=== PATIENT | female | born 1955 | race American Indian/Alaskan Native ===

== ENCOUNTER 2016-11-08 18:57 | Emergency (ER) | payer MEDICAID, SELFPAY ==
[2016-11-08 19:08] VITALS: TEMP 98.1
--- NOTE | 2016-11-08 19:40 | C.PDOC ---
History Of Present Illness Patient reports 1 week history of swelling and pain to the right 4th toe. The patient reports she did not injury the toe or have any rash/broken skin. Patient reports that the symptoms progressively worsened today prompting visit. Denies fever, drainage. Time Seen by Provider: 11/08/16 19:21 Chief Complaint (Nursing): Lower Extremity Problem/Injury History Per: Patient History/Exam Limitations: no limitations Onset/Duration Of Symptoms: Days Current Symptoms Are (Timing): Still Present Pain Scale Rating Of: 4 Recent travel outside of the [place]: No Past Medical History Reviewed: Historical Data, Nursing Documentation, Vital Signs Vital Signs: Last Vital Signs Temp 98.1 F 11/08/16 19:03 Pulse 80 11/08/16 20:43 Resp 16 11/08/16 20:43 BP 132/81 11/08/16 20:43 Pulse Ox 98 11/08/16 20:43 - Medical History PMH: Diabetes, HTN Family History: States: No Known Family Hx - Social History Hx Alcohol Use: No Hx Substance Use: No Review Of Systems Except As Marked, All Systems Reviewed And Found Negative. Physical Exam - Physical Exam Appears: Non-toxic, No Acute Distress Skin: Normal Color, Warm, No Rash Head: Atraumatic, Normacephalic Eye(s): bilateral: Normal Inspection Oral Mucosa: Moist Extremity: Normal ROM, Capillary Refill (< 2 sec), Other ((+) mild tenderness and swelling to the proximal dorsal right 4th toe ) Pulses: Left Dorsalis Pedis: Normal, Right Dorsalis Pedis: Normal Neurological/Psych: Oriented x3, Normal Speech, Normal Motor, Normal Sensation Gait: Steady ED Course And Treatment O2 Sat by Pulse Oximetry: 100 (on RA) Pulse Ox Interpretation: Normal Medical Decision Making Medical Decision Making: Diff/DX: Cellulitis, gout, fracture/dislocation. the xrays appear to have a chronic fracture to the 4th toe. The toes were cj taped and patient placed in Ortho shoe. The patient is also a diabetic and this could be an infected toe. The patient was placed on Clindamycin and was given strict instructions for Podiatry follow up. Disposition - Disposition Referrals: Darwin Busby DPM [[facility]] - Disposition: HOME/ ROUTINE Disposition Time: 20:37 Condition: GOOD Additional Instructions: FOLLOW UP WITH THE [facility] WITHIN 1-2 DAYS WITHOUT FAIL. RETURN IF WORSENED, Prescriptions: Clindamycin [Cleocin] 300 mg PO TID #30 cap traMADol [Ultram] 50 mg PO Q6 PRN #20 tab PRN Reason: Pain Instructions: Cellulitis (DC) Forms: [email or web address] (Ukrainian) - Clinical Impression Clinical Impression: Cellulitis
[2016-11-08 20:43] VITALS: BP 132/81; PULSE 80; RESP 16
[2016-11-09 06:39] VITALS: O2SAT 100
--- NOTE | 2016-11-09 11:10 | RAD ---
PROCEDURE: Right foot HISTORY: Swelling and tenderness to the R 4th toe No antecedent history of trauma provided. COMPARISON: None. TECHNIQUE: Standard protocol for this study/examination. FINDINGS: Soft tissue swelling without osseous abnormality. No visulaized radiopaque/visualized foreign body. IMPRESSION: Soft tissue swelling without acute articular or osseous abnormality. No preliminary report provided by emergency department personnel.
== END 2016-11-08 20:43 | disposition home or self-care (01) ==
LOC: C.ER 18:57
DX: L03.031 Cellulitis of right toe (principal)